=== PATIENT | female | born 1985 | race Caucasian/White ===

== ENCOUNTER 2022-12-23 11:52 | Emergency (ER) | payer OTHER ==
[~2022-12-23] VITALS: Ht 170.2 cm; Wt 122.2 kg
[2022-12-23 11:53] VITALS: BP 127/91; TEMP 97.4; O2SAT 100
[2022-12-23] MEDS ORDERED: RABIES IMMUNE GLOBULIN 1500 INTERNATIONAL UNIT/5ML VIAL IM.IMMUN ONE ×2 (13:00→13:30)
[2022-12-23] MEDS ORDERED: RABIES VACCINE HUMAN 2.5 INTERNATIONAL UNITS/ML VIAL IM ONE (13:00)
[2022-12-23] MEDS ORDERED: RABIES IMMUNE GLOBULIN 300 INTERNATIONAL UNITS/1ML VIAL IM.IMMUN ONE (13:30)
== END 2022-12-23 14:01 | disposition home or self-care (01) ==
LOC: M ED 11:52
DX: Z29.14 Encounter for prophylactic rabies immune globulin (principal)

== ENCOUNTER 2022-12-26 03:04 | Emergency (ER) | payer OTHER ==
[~2022-12-26] VITALS: Ht 170.2 cm; Wt 121.5 kg
[2022-12-26 03:05] VITALS: BP 135/79; TEMP 97.9; O2SAT 100
[2022-12-26] MEDS ORDERED: RABIES VACCINE HUMAN 2.5 INTERNATIONAL UNITS/ML VIAL IM ONE (07:10)
== END 2022-12-26 07:27 | disposition home or self-care (01) ==
LOC: M ED 03:04
DX: Z29.14 Encounter for prophylactic rabies immune globulin (principal)

== ENCOUNTER 2022-12-30 08:42 | Emergency (ER) | payer OTHER ==
[~2022-12-30] VITALS: Ht 170.2 cm; Wt 120.1 kg
[2022-12-30 08:43] VITALS: BP 132/82; TEMP 97.8; O2SAT 100
[2022-12-30] MEDS ORDERED: RABIES VACCINE HUMAN 2.5 INTERNATIONAL UNITS/ML VIAL IM ONE (09:10)
== END 2022-12-30 12:14 | disposition home or self-care (01) ==
LOC: M ED 08:42
DX: Z29.14 Encounter for prophylactic rabies immune globulin (principal)